=== PATIENT | female | born 1990 | race African-American/Black ===

== ENCOUNTER 2018-06-03 17:08 | Inpatient (IN) | payer SELFPAY ==
[~2018-06-03] VITALS: Ht 154.9 cm; Wt 58.5 kg
[2018-06-03] MEDS ORDERED: Isovue-300 100ml vial INJ PRN (18:15)
--- NOTE | 2018-06-03 18:23 | Emergency Room Report ---
History of Present Illness General Chief Complaint: Abdominal Pain Source: Patient Present Illness HPI 28-year-old female history of cholecystectomy p/w abdominal pain and vomiting for 5 days. Patient states pain started gradually, localized to all over abdomen, non radiating, sharp in nature, intermittent. No relieving or exacerbating factors. Severity is 5 out of 10. Pt reports n/v, multiple episodes of nbnb vomiting, denies diarrhea, and cannot room of the last time she passed gas or stool, probably in 5 days Denies fever, chills. Denies any drug use Allergies: Coded Allergies: No Known Allergies (Unverified , 06/03/18) Patient History Past Medical History: see triage record Past Surgical History: none Pertinent Family History: none Last Menstrual Period: 04/26/18 Now: No Reviewed Nursing Documentation: PMH: Agreed; PSxH: Agreed Nursing Documentation-PMH Past Medical History: No History, Except For Review of Systems All Other Systems: negative except mentioned in HPI Physical Exam Vital Signs Date Time Temp Pulse Resp B/P (MAP) Pulse Ox O2 Delivery O2 Flow Rate FiO2 06/03/18 17:26 98.7 116 18 131/69 95 Room Air 98.8 Sp02 EP Interpretation: reviewed, normal General Appearance: alert, GCS 15, non-toxic, moderate distress Head: normocephalic, atraumatic Eyes: bilateral eye normal inspection, bilateral eye PERRL, bilateral eye EOMI ENT: normal ENT inspection, normal pharynx, normal voice, moist mucus membranes Neck: normal inspection, full range of motion, supple Respiratory: normal inspection, lungs clear, normal breath sounds, no respiratory distress, no retraction, no wheezing, speaking full sentences, chest symmetrical Cardiovascular #1: normal inspection, regular rate, rhythm, no edema, normal capillary refill Cardiovascular #2: 2+ radial (R), 2+ radial (L) Gastrointestinal: other - Nondistended, generalized tenderness, normal bowel sounds, no rebound no guarding Musculoskeletal: normal inspection, back normal, normal range of motion, non- tender Neurologic: normal inspection, alert, oriented x3, responsive, motor strength/ tone normal, sensory intact, normal gait, speech normal Psychiatric: normal inspection, judgement/insight normal, memory normal Skin: normal inspection, normal color, no rash, warm/dry, well hydrated, normal turgor Medical Decision Making Diagnostic Impression: Primary Impression: Abdominal pain Additional Impressions: Elevated liver enzymes Hypokalemia Intractable nausea and vomiting ER Course 28-year-old female with abdominal pain also not passing gas or stool for 5 days Differential Diagnosis: Gastritis, gastroenteritis, appendicitis, diverticulitis, SBO, UTI/pyelo Plan: Basic labs, ua, pain control, IVF CT abdopelvis ER course: Patient has remained stable during ED stay. given potassium and fluid, still unable to tolerate PO repeat abd exam has been benign CT showing "transient" intussuception - I informed Dr Randall Disposition: Patient is to be admitted to Dr Cook Please note that this Emergency Department Report was dictated using [employer] finisher technology software, occasionally this can lead to erroneous entry secondary to interpretation by the dictation equipment Laboratory Tests Test 06/03/18 17:13 White Blood Count 12.2 K/UL (4.8-10.8) H Red Blood Count 4.97 M/UL (4.20-5.40) Hemoglobin 15.7 G/DL (12.0-16.0) Hematocrit 45.3 % (37.0-47.0) Mean Corpuscular Volume 91 FL (80-99) Mean Corpuscular Hemoglobin 31.5 PG (27.0-31.0) H Mean Corpuscular Hemoglobin Concent 34.6 G/DL (32.0-36.0) Red Cell Distribution Width 10.4 % (11.6-14.8) L Platelet Count 198 K/UL (150-450) Mean Platelet Volume 8.7 FL (6.5-10.1) Neutrophils (%) (Auto) 66.6 % (45.0-75.0) Lymphocytes (%) (Auto) 23.3 % (20.0-45.0) Monocytes (%) (Auto) 8.6 % (1.0-10.0) Eosinophils (%) (Auto) 0.7 % (0.0-3.0) Basophils (%) (Auto) 0.8 % (0.0-2.0) Urine Color Brown Urine Appearance Slightly cloudy Urine pH 6.5 (4.5-8.0) Urine Specific [place] 1.015 (1.005-1.035) Urine Protein 2+ (NEGATIVE) H Urine Glucose (UA) Negative (NEGATIVE) Urine Ketones 3+ (NEGATIVE) H Urine Occult Blood 1+ (NEGATIVE) H Urine Nitrite Negative (NEGATIVE) Urine Bilirubin 1+ (NEGATIVE) H Urine Ictotest Negative (NEGATIVE) Urine Urobilinogen 12 MG/DL (0.0-1.0) H Urine Leukocyte Esterase 2+ (NEGATIVE) H Urine RBC 2-4 /HPF (0 - 2) H Urine WBC 5-10 /HPF (0 - 2) H Urine Squamous Epithelial Cells Few /LPF (NONE/OCC) Urine Amorphous Sediment Few /LPF (NONE) H Urine Bacteria Few /HPF (NONE) Urine HCG, Qualitative Negative (NEGATIVE) Sodium Level 133 MMOL/L (136-145) L Potassium Level 2.6 MMOL/L (3.5-5.1) *L Chloride Level 95 MMOL/L (98-107) L Carbon Dioxide Level 23 MMOL/L (21-32) Anion Gap 15 mmol/L (5-15) Blood Urea Nitrogen 11 mg/dL (7-18) Creatinine 0.8 MG/DL (0.55-1.30) Estimate Glomerular Filtration Rate > 60 mL/min (>60) Glucose Level 104 MG/DL (74-106) Calcium Level 9.2 MG/DL (8.5-10.1) Total Bilirubin 1.1 MG/DL (0.2-1.0) H Direct Bilirubin 0.3 MG/DL (0.0-0.3) Aspartate Amino Transferase (AST) 240 U/L (15-37) H Alanine Aminotransferase (ALT) 533 U/L (12-78) H Alkaline Phosphatase 69 U/L (46-116) Total Protein 8.8 G/DL (6.4-8.2) H Albumin 4.0 G/DL (3.4-5.0) Globulin 4.8 g/dL Albumin/Globulin Ratio 0.8 (1.0-2.7) L Lipase 189 U/L (73-393) Human Chorionic Gonadotropin, Quant < 1 mIU/mL (1-6) L CT/MRI/US Diagnostic Results CT/MRI/US Diagnostic Results : Imaging Test Ordered: CT ABDO PELVIS Impression CT ABDOMEN & PELVIS With Contrast: Lower thorax is unremarkable. Gallbladder is surgically absent. Liver, spleen, pancreas and adrenal glands are unremarkable. Kidneys, ureters and urinary bladder are unremarkable. Uterus and adnexa are unremarkable. Appendix is unremarkable. Transient small bowel intussusception within the left lower quadrant. No bowel obstruction. No acute osseous abnormality. Last Vital Signs Date Time Temp Pulse Resp B/P (MAP) Pulse Ox O2 Delivery O2 Flow Rate FiO2 06/03/18 17:26 98.7 116 18 131/69 95 Room Air 98.8 Disposition: ADMITTED INPATIENT Condition: Serious Wili Briceno M.D. Jun 03, 2018 18:23
[2018-06-03 18:39] VITALS: BP 147/105
[2018-06-03 18:46] LABS: BASOPHILS % (AUTO) 0.8 % (0.0-2.0); EOSINOPHILS % (AUTO) 0.7 % (0.0-3.0); HEMATOCRIT 45.3 % (37.0-47.0); HEMOGLOBIN 15.7 G/DL (12.0-16.0); LYMPHOCYTES % (AUTO) 23.3 % (20.0-45.0); MEAN CORPUSCULAR VOLUME 91 FL (80-99); MONOCYTES % (AUTO) 8.6 % (1.0-10.0); NEUTROPHILS % (AUTO) 66.6 % (45.0-75.0); PLATELET COUNT 198 K/UL (150-450); RED BLOOD COUNT 4.97 M/UL (4.20-5.40); RED CELL DISTRIBUTION WIDTH 10.4 % (11.6-14.8); WHITE BLOOD COUNT 12.2 K/UL (4.8-10.8)
[2018-06-03 18:56] LABS: APPEARANCE,URINE SLIGHTLY CLOUDY; BILIRUBIN, URINE 1+ (NEGATIVE); COLOR,URINE BROWN; GLUCOSE, URINE (UA) NEGATIVE (NEGATIVE); KETONES,URINE 3+ (NEGATIVE); LEUKOCYTE ESTERASE ,URINE 2+ (NEGATIVE); NITRITE,URINE NEGATIVE (NEGATIVE); PH,URINE 6.5 (4.5-8.0); PROTEIN,URINE 2+ (NEGATIVE); UROBILINOGEN,URINE 12 MG/DL (0.0-1.0)
[2018-06-03 19:11] LABS: ALANINE AMINOTRANSFERASE 533 U/L (12-78); ALBUMIN/GLOBULIN RATIO 0.8 (1.0-2.7); ALKALINE PHOSPHATASE 69 U/L (46-116); ANION GAP 15 mmol/L (5-15); ASPARTATE AMINO TRANSFERASE 240 U/L (15-37); BILIRUBIN,TOTAL 1.1 MG/DL (0.2-1.0); BLOOD UREA NITROGEN 11 mg/dL (7-18); CALCIUM 9.2 MG/DL (8.5-10.1); CARBON DIOXIDE 23 MMOL/L (21-32); CHLORIDE 95 MMOL/L (98-107); CREATININE 0.8 MG/DL (0.55-1.30); SODIUM 133 MMOL/L (136-145)
[2018-06-03 19:16] LABS: POTASSIUM 2.6 MMOL/L (3.5-5.1)
[2018-06-03 19:17] LABS: BILIRUBIN,DIRECT 0.3 MG/DL (0.0-0.3)
[2018-06-03 20:00] VITALS: BP 133/89
[2018-06-03 22:49] VITALS: BP 142/80
[2018-06-04] VITALS: BP 133/86
[2018-06-04 04:44] VITALS: BP 142/92
[2018-06-04 06:02] LABS: BASOPHILS % (AUTO) 0.9 % (0.0-2.0); EOSINOPHILS % (AUTO) 1.6 % (0.0-3.0); HEMOGLOBIN 13.6 G/DL (12.0-16.0); LYMPHOCYTES % (AUTO) 23.9 % (20.0-45.0); MEAN CORPUSCULAR VOLUME 91 FL (80-99); MONOCYTES % (AUTO) 10.9 % (1.0-10.0); NEUTROPHILS % (AUTO) 62.7 % (45.0-75.0); PLATELET COUNT 187 K/UL (150-450); RED CELL DISTRIBUTION WIDTH 10.5 % (11.6-14.8); WHITE BLOOD COUNT 9.9 K/UL (4.8-10.8)
[2018-06-04 06:35] LABS: CREATINE KINASE 569 U/L (26-308); GAMMA GLUTAMYL TRANSPEPTIDASE 59 U/L (5-85); PHOSPHORUS 2.2 MG/DL (2.5-4.9)
[2018-06-04 06:48] LABS: ALANINE AMINOTRANSFERASE 471 U/L (12-78); ALBUMIN 3.3 G/DL (3.4-5.0); ALBUMIN/GLOBULIN RATIO 0.8 (1.0-2.7); ALKALINE PHOSPHATASE 53 U/L (46-116); ANION GAP 10 mmol/L (5-15); ASPARTATE AMINO TRANSFERASE 190 U/L (15-37); BILIRUBIN,TOTAL 0.8 MG/DL (0.2-1.0); BLOOD UREA NITROGEN 6 mg/dL (7-18); CALCIUM 7.9 MG/DL (8.5-10.1); CARBON DIOXIDE 22 MMOL/L (21-32); CHLORIDE 102 MMOL/L (98-107); CHOLESTEROL 95 MG/DL (< 200); CREATININE 0.6 MG/DL (0.55-1.30); HDL CHOLESTEROL 42 MG/DL (40-60); POTASSIUM 3.8 MMOL/L (3.5-5.1); SODIUM 134 MMOL/L (136-145); TRIGLYCERIDES 56 MG/DL (30-150)
--- NOTE | 2018-06-04 07:58 | Consultation ---
History of Present Illness General Date patient seen: Jun 04, 2018 Time patient seen: 08:00 - am Chief Complaint: Abdominal Pain Referring physician: celestine Reason for Consultation: pain management Present Illness HPI 28-year-old female history of cholecystectomy p/w abdominal pain and vomiting for 5 days. Patient states pain started gradually, localized to all over abdomen, non radiating, sharp in nature, intermittent. No relieving or exacerbating factors. Severity is 5 out of 10. Pt reports n/v, multiple episodes of vomiting, denies diarrhea. We were consulted for pain management. Allergies: Coded Allergies: No Known Allergies (Unverified , 06/03/18) Patient History Healthcare decision maker N Resuscitation status Full Code Advanced Directive on File No Past Medical/Surgical History Past Medical/Surgical History: (1) Abdominal pain (2) Hypokalemia Review of Systems Constitutional: Reports: no symptoms Eye: Reports: no symptoms ENT: Reports: no symptoms Respiratory: Reports: no symptoms Cardiovascular: Reports: no symptoms Gastrointestinal: Reports: abdominal pain, nausea, vomiting Genitourinary: Reports: no symptoms Musculoskeletal: Reports: no symptoms Skin: Reports: no symptoms Psychiatric: Reports: no symptoms Neurological: Reports: no symptoms Endocrine: Reports: no symptoms Hematologic/Lymphatic: Reports: no symptoms Physical Exam General Appearance: no apparent distress, alert HEENT: PERRL, EOMI Neck: normal alignment, supple Respiratory/Chest: lungs clear, normal breath sounds Cardiovascular/Chest: normal rate, regular rhythm Abdomen: tender Extremities: non-tender 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 II-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 grossly normal, alert, oriented x 3 Last 24 Hour Vital Signs Date Time Temp Pulse Resp B/P (MAP) Pulse Ox O2 Delivery O2 Flow Rate FiO2 06/04/18 04:44 97.7 73 18 142/92 (109) 98 97.7 06/04/18 00:00 98.2 60 16 133/86 (102) 98 98.2 06/03/18 22:49 96.4 74 16 142/80 (100) 93 96.4 06/03/18 22:19 Room Air 06/03/18 21:45 98.4 78 18 133/89 100 Room Air 98.4 06/03/18 20:00 98.4 78 18 133/89 100 Room Air 98.4 06/03/18 18:39 98.8 73 18 147/105 99 Room Air 98.8 06/03/18 17:26 98.7 116 18 131/69 95 Room Air 98.8 Intake and Output 06/03/18 06/04/18 19:00 07:00 Intake Total 1000 ml Balance 1000 ml Intake IV Total 1000 ml # Voids 1 2 Laboratory Tests Test 06/03/18 17:13 06/03/18 21:10 06/04/18 05:10 White Blood Count 12.2 K/UL (4.8-10.8) H 9.9 K/UL (4.8-10.8) Red Blood Count 4.97 M/UL (4.20-5.40) 4.30 M/UL (4.20-5.40) Hemoglobin 15.7 G/DL (12.0-16.0) 13.6 G/DL (12.0-16.0) Hematocrit 45.3 % (37.0-47.0) 39.0 % (37.0-47.0) Mean Corpuscular Volume 91 FL (80-99) 91 FL (80-99) Mean Corpuscular Hemoglobin 31.5 PG (27.0-31.0) H 31.8 PG (27.0-31.0) H Mean Corpuscular Hemoglobin Concent 34.6 G/DL (32.0-36.0) 35.0 G/DL (32.0-36.0) Red Cell Distribution Width 10.4 % (11.6-14.8) L 10.5 % (11.6-14.8) L Platelet Count 198 K/UL (150-450) 187 K/UL (150-450) Mean Platelet Volume 8.7 FL (6.5-10.1) 8.6 FL (6.5-10.1) Neutrophils (%) (Auto) 66.6 % (45.0-75.0) 62.7 % (45.0-75.0) Lymphocytes (%) (Auto) 23.3 % (20.0-45.0) 23.9 % (20.0-45.0) Monocytes (%) (Auto) 8.6 % (1.0-10.0) 10.9 % (1.0-10.0) H Eosinophils (%) (Auto) 0.7 % (0.0-3.0) 1.6 % (0.0-3.0) Basophils (%) (Auto) 0.8 % (0.0-2.0) 0.9 % (0.0-2.0) Urine Color Brown Urine Appearance Slightly cloudy Urine pH 6.5 (4.5-8.0) Urine Specific [place] 1.015 (1.005-1.035) Urine Protein 2+ (NEGATIVE) H Urine Glucose (UA) Negative (NEGATIVE) Urine Ketones 3+ (NEGATIVE) H Urine Occult Blood 1+ (NEGATIVE) H Urine Nitrite Negative (NEGATIVE) Urine Bilirubin 1+ (NEGATIVE) H Urine Ictotest Negative (NEGATIVE) Urine Urobilinogen 12 MG/DL (0.0-1.0) H Urine Leukocyte Esterase 2+ (NEGATIVE) H Urine RBC 2-4 /HPF (0 - 2) H Urine WBC 5-10 /HPF (0 - 2) H Urine Squamous Epithelial Cells Few /LPF (NONE/OCC) Urine Amorphous Sediment Few /LPF (NONE) H Urine Bacteria Few /HPF (NONE) Urine HCG, Qualitative Negative (NEGATIVE) Sodium Level 133 MMOL/L (136-145) L 134 MMOL/L (136-145) L Potassium Level 2.6 MMOL/L (3.5-5.1) *L 3.8 MMOL/L (3.5-5.1) Chloride Level 95 MMOL/L (98-107) L 102 MMOL/L (98-107) Carbon Dioxide Level 23 MMOL/L (21-32) 22 MMOL/L (21-32) Anion Gap 15 mmol/L (5-15) 10 mmol/L (5-15) Blood Urea Nitrogen 11 mg/dL (7-18) 6 mg/dL (7-18) L Creatinine 0.8 MG/DL (0.55-1.30) 0.6 MG/DL (0.55-1.30) Estimat Glomerular Filtration Rate > 60 mL/min (>60) > 60 mL/min (>60) Glucose Level 104 MG/DL (74-106) 106 MG/DL (74-106) Calcium Level 9.2 MG/DL (8.5-10.1) 7.9 MG/DL (8.5-10.1) L Total Bilirubin 1.1 MG/DL (0.2-1.0) H 0.8 MG/DL (0.2-1.0) Direct Bilirubin 0.3 MG/DL (0.0-0.3) Aspartate Amino Transf (AST/SGOT) 240 U/L (15-37) H 190 U/L (15-37) H Alanine Aminotransferase (ALT/SGPT) 533 U/L (12-78) H 471 U/L (12-78) H Alkaline Phosphatase 69 U/L (46-116) 53 U/L (46-116) C-Reactive Protein, Quantitative < 0.4 mg/dL (0.00-0.90) Total Protein 8.8 G/DL (6.4-8.2) H 7.2 G/DL (6.4-8.2) Albumin 4.0 G/DL (3.4-5.0) 3.3 G/DL (3.4-5.0) L Globulin 4.8 g/dL 3.9 g/dL Albumin/Globulin Ratio 0.8 (1.0-2.7) L 0.8 (1.0-2.7) L Lipase 189 U/L (73-393) Human Chorionic Gonadotropin, Quant < 1 mIU/mL (1-6) L Hepatitis A IgM Antibody Pending Hepatitis B Surface Antigen Pending Hepatitis B Core IgM Antibody Pending Hepatitis C Antibody Pending Uric Acid 3.1 MG/DL (2.6-7.2) Phosphorus Level 2.2 MG/DL (2.5-4.9) L Magnesium Level 1.9 MG/DL (1.8-2.4) Gamma Glutamyl Transpeptidase 59 U/L (5-85) Total Creatine Kinase 569 U/L (26-308) H Triglycerides Level 56 MG/DL (30-150) Cholesterol Level 95 MG/DL (< 200) LDL Cholesterol 45 mg/dL (<100) HDL Cholesterol 42 MG/DL (40-60) Cholesterol/HDL Ratio 2.3 (3.3-4.4) L Thyroid Stimulating Hormone (TSH) 0.728 uiU/mL (0.358-3.740) Height (Feet): 5 Height (Inches): 1.00 Weight (Pounds): 129 Medications Current Medications Medications (Trade) Dose Ordered Sig/Thien Route PRN Reason Start Time Stop Time Status Last Admin Dose Admin Dextrose/ Electrolytes 1,000 ml @ 75 mls/hr [id number] IV 06/03/18 22:30 07/03/18 22:29 06/04/18 02:20 Famotidine (Pepcid I.v.) 20 mg Q12HR IVP 06/04/18 09:00 07/04/18 08:59 Ondansetron HCl (Zofran) 4 mg Q6H PRN IVP Nausea & Vomiting 06/03/18 23:15 07/03/18 23:14 Assessment/Plan Problem List: (1) Abdominal pain ICD Codes: R10.9 - Unspecified abdominal pain SNOMED: 96928423 (2) Intussusception of small bowel ICD Codes: K56.1 - Intussusception SNOMED: 697360877 Assessment/Plan Patient will be started on Tramadol 25mg PO 1 tab Q4H PRN severe pain. D/w Dr. Coronel and he concurred. Than you for consultation. Rocael Gerber Jun 04, 2018 07:58
[2018-06-04 08:00] VITALS: BP 136/93
[2018-06-04] MEDS ORDERED: traMADol 50mg tab ORAL PRN (08:15)
[2018-06-04] MEDS ORDERED: Gastrograffin 30ml ORAL PRN (10:00)
[2018-06-04] MEDS ORDERED: Sodium Phosphate 30 MM in NS 275 ML IVPB ONE (10:30)
[2018-06-04] MEDS: Albuterol/Ipratropium 3ml neb HHN PRN ×2 (10:38→21:34)
--- NOTE | 2018-06-04 11:36 | Diagnostic Imaging Report ---
Clinical Indication: Abdominal pain, nausea, vomiting for 5 days Technique: Patient given oral contrast. IV administration nonionic contrast. Venous phase spiral acquisition obtained through the abdomen and pelvis. Multiplanar reconstructions were generated. Total dose length product 563.08 mGycm. CTDIvol(s) 11.66 mGy. Dose reduction achieved using automated exposure control Comparison: none Findings: There is a small focal intussusception seen in the left lower quadrant, probably involving proximal ileum, extending about 2 cm in length. The intussuscipiens is actually somewhat greater in caliber than the intussusceptum. No definite mass is demonstrated. Contrast is seen throughout most of the small bowel, including beyond the point of intussusception. There is no small bowel wall thickening. The appendix is normal. No evidence of diverticulosis or diverticulitis. No free or loculated intraperitoneal air or fluid is evident. The distal esophagus, stomach, duodenum are unremarkable. The gallbladder is surgically absent. The liver, bile ducts, pancreas, spleen, adrenals, kidneys are unremarkable. No retroperitoneal or mesenteric mass or adenopathy. No pelvic mass or adenopathy. Uterus and ovaries appear unremarkable. Included lung bases are clear. 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 Impression: Small focal intussusception left lower quadrant, probably involving proximal ileum, does not appear to obstructive, likely transient No acute process otherwise Surgically absent gallbladder This agrees with the preliminary interpretation provided overnight by [facility] teleradiology service. The CT scanner at [facility] is accredited by the [employer] and the scans are performed using protocols designed to limit radiation exposure to as low as reasonably achievable to attain images of sufficient resolution adequate for diagnostic evaluation.
[2018-06-04 12:00] VITALS: BP 148/105
[2018-06-04] MEDS: traMADol 50mg tab ORAL PRN ×2 (12:11→21:16)
--- NOTE | 2018-06-04 12:26 | GI Initial Consult Note ---
History of Present Illness General Date patient seen: Jun 04, 2018 Time patient seen: 14:15 Reason for Hospitalization: Abdominal Pain Referring physician: DORA MCKINNON Reason for Consultation: ABDOMINAL PAIN Present Illness HPI 28-year-old female history of cholecystectomy p/w abdominal pain and vomiting for 5 days. Patient states pain started gradually, localized to all over abdomen, non radiating, sharp in nature, intermittent. No relieving or exacerbating factors. Severity is 5 out of 10. Pt reports n/v, multiple episodes of nbnb vomiting, denies diarrhea, and cannot room of the last time she passed gas or stool, probably in 5 days Denies fever, chills. Denies any drug use GI consulted for abdominal pain. Pt seen, awake A&Ox4 NAD with no active s/sx of N/V/D. Abdomen is soft, non distended. Per patient no BM in 5 days. Has been passing gas. States she is unable to tolerate PO, and has vomited multiple times. CT AP shows patient has intussusception of the small bowel. No history of endoscopy / colonoscopy. Med list reviewed/reconciled: Yes Allergies: Coded Allergies: No Known Allergies (Unverified , 06/03/18) Patient History History Provided By: Patient, Medical Record PMH Narrative Past Medical History: see triage record Past Surgical History: none Pertinent Family History: none Last Menstrual Period: 04/26/18 Now: No Reviewed Nursing Documentation: PMH: Agreed; PSxH: Agreed Nursing Documentation-PM Past Medical History: No History, Except For Social History: Denies: smoking, alcohol use, drug use, other Review of Systems All Other Systems: negative except mentioned in HPI Physical Exam Vital Signs Date Time Temp Pulse Resp B/P (MAP) Pulse Ox O2 Delivery O2 Flow Rate FiO2 06/03/18 17:26 98.7 116 18 131/69 95 Room Air 98.8 06/04/18 10:39 21 Sp02 EP Interpretation: reviewed, normal Labs Laboratory Tests Test 06/03/18 17:13 06/03/18 21:10 06/04/18 05:10 White Blood Count 12.2 K/UL (4.8-10.8) H 9.9 K/UL (4.8-10.8) Red Blood Count 4.97 M/UL (4.20-5.40) 4.30 M/UL (4.20-5.40) Hemoglobin 15.7 G/DL (12.0-16.0) 13.6 G/DL (12.0-16.0) Hematocrit 45.3 % (37.0-47.0) 39.0 % (37.0-47.0) Mean Corpuscular Volume 91 FL (80-99) 91 FL (80-99) Mean Corpuscular Hemoglobin 31.5 PG (27.0-31.0) H 31.8 PG (27.0-31.0) H Mean Corpuscular Hemoglobin Concent 34.6 G/DL (32.0-36.0) 35.0 G/DL (32.0-36.0) Red Cell Distribution Width 10.4 % (11.6-14.8) L 10.5 % (11.6-14.8) L Platelet Count 198 K/UL (150-450) 187 K/UL (150-450) Mean Platelet Volume 8.7 FL (6.5-10.1) 8.6 FL (6.5-10.1) Neutrophils (%) (Auto) 66.6 % (45.0-75.0) 62.7 % (45.0-75.0) Lymphocytes (%) (Auto) 23.3 % (20.0-45.0) 23.9 % (20.0-45.0) Monocytes (%) (Auto) 8.6 % (1.0-10.0) 10.9 % (1.0-10.0) H Eosinophils (%) (Auto) 0.7 % (0.0-3.0) 1.6 % (0.0-3.0) Basophils (%) (Auto) 0.8 % (0.0-2.0) 0.9 % (0.0-2.0) Urine Color Brown Urine Appearance Slightly cloudy Urine pH 6.5 (4.5-8.0) Urine Specific [place] 1.015 (1.005-1.035) Urine Protein 2+ (NEGATIVE) H Urine Glucose (UA) Negative (NEGATIVE) Urine Ketones 3+ (NEGATIVE) H Urine Occult Blood 1+ (NEGATIVE) H Urine Nitrite Negative (NEGATIVE) Urine Bilirubin 1+ (NEGATIVE) H Urine Ictotest Negative (NEGATIVE) Urine Urobilinogen 12 MG/DL (0.0-1.0) H Urine Leukocyte Esterase 2+ (NEGATIVE) H Urine RBC 2-4 /HPF (0 - 2) H Urine WBC 5-10 /HPF (0 - 2) H Urine Squamous Epithelial Cells Few /LPF (NONE/OCC) Urine Amorphous Sediment Few /LPF (NONE) H Urine Bacteria Few /HPF (NONE) Urine HCG, Qualitative Negative (NEGATIVE) Sodium Level 133 MMOL/L (136-145) L 134 MMOL/L (136-145) L Potassium Level 2.6 MMOL/L (3.5-5.1) *L 3.8 MMOL/L (3.5-5.1) Chloride Level 95 MMOL/L (98-107) L 102 MMOL/L (98-107) Carbon Dioxide Level 23 MMOL/L (21-32) 22 MMOL/L (21-32) Anion Gap 15 mmol/L (5-15) 10 mmol/L (5-15) Blood Urea Nitrogen 11 mg/dL (7-18) 6 mg/dL (7-18) L Creatinine 0.8 MG/DL (0.55-1.30) 0.6 MG/DL (0.55-1.30) Estimat Glomerular Filtration Rate > 60 mL/min (>60) > 60 mL/min (>60) Glucose Level 104 MG/DL (74-106) 106 MG/DL (74-106) Calcium Level 9.2 MG/DL (8.5-10.1) 7.9 MG/DL (8.5-10.1) L Total Bilirubin 1.1 MG/DL (0.2-1.0) H 0.8 MG/DL (0.2-1.0) Direct Bilirubin 0.3 MG/DL (0.0-0.3) Aspartate Amino Transf (AST/SGOT) 240 U/L (15-37) H 190 U/L (15-37) H Alanine Aminotransferase (ALT/SGPT) 533 U/L (12-78) H 471 U/L (12-78) H Alkaline Phosphatase 69 U/L (46-116) 53 U/L (46-116) C-Reactive Protein, Quantitative < 0.4 mg/dL (0.00-0.90) Total Protein 8.8 G/DL (6.4-8.2) H 7.2 G/DL (6.4-8.2) Albumin 4.0 G/DL (3.4-5.0) 3.3 G/DL (3.4-5.0) L Globulin 4.8 g/dL 3.9 g/dL Albumin/Globulin Ratio 0.8 (1.0-2.7) L 0.8 (1.0-2.7) L Lipase 189 U/L (73-393) Human Chorionic Gonadotropin, Quant < 1 mIU/mL (1-6) L Hepatitis A IgM Antibody Pending Hepatitis B Surface Antigen Pending Hepatitis B Core IgM Antibody Pending Hepatitis C Antibody Pending Uric Acid 3.1 MG/DL (2.6-7.2) Phosphorus Level 2.2 MG/DL (2.5-4.9) L Magnesium Level 1.9 MG/DL (1.8-2.4) Gamma Glutamyl Transpeptidase 59 U/L (5-85) Total Creatine Kinase 569 U/L (26-308) H Triglycerides Level 56 MG/DL (30-150) Cholesterol Level 95 MG/DL (< 200) LDL Cholesterol 45 mg/dL (<100) HDL Cholesterol 42 MG/DL (40-60) Cholesterol/HDL Ratio 2.3 (3.3-4.4) L Thyroid Stimulating Hormone (TSH) 0.728 uiU/mL (0.358-3.740) General Appearance: well appearing, no apparent distress, alert, thin Head: normocephalic EENT: PERRL/EOMI, normal ENT inspection Neck: supple Respiratory: normal breath sounds, no respiratory distress Cardiovascular: normal rate Gastrointestinal: normal inspection, non tender, soft, normal bowel sounds, non -distended Rectal: deferred Genitourinary: no CVA tenderness Musculoskeletal: normal inspection, back normal Neurologic: normal inspection, alert, oriented x3, responsive Psychiatric: normal inspection, judgement/insight normal, memory normal Skin: normal inspection, normal color, no rash, warm/dry, palpation normal, well hydrated Lymphatic: normal inspection, no adenopathy Current Medications Current Medications Medications (Trade) Dose Ordered Sig/Thien Route PRN Reason Start Time Stop Time Status Last Admin Dose Admin Albuterol/ Ipratropium (Albuterol/ Ipratropium) 3 ml Q4H PRN HHN Shortness of Breath 06/04/18 08:15 06/09/18 08:14 06/04/18 10:38 Dextrose/ Electrolytes 1,000 ml @ 75 mls/hr [id number] IV 06/03/18 22:30 07/03/18 22:29 06/04/18 12:02 Diatrizoate Meglum/ Diatrizoate Sod (Gastrografin) 1 ml NOW PRN ORAL Radiology Procedure 06/04/18 10:00 06/07/18 09:53 Diphenhydramine HCl (Benadryl) 25 mg Q6H PRN ORAL Itching/sleep 06/04/18 08:30 07/04/18 08:14 Famotidine (Pepcid I.v.) 20 mg Q12HR IVP 06/04/18 09:00 07/04/18 08:59 06/04/18 08:45 Ondansetron HCl (Zofran) 4 mg Q6H PRN IVP Nausea & Vomiting 06/03/18 23:15 07/03/18 23:14 Sodium Phosphate 30 mm/Sodium Chloride 285 ml @ 47.5 mls/hr ONCE ONCE IVPB 06/04/18 10:30 06/04/18 16:29 06/04/18 11:21 Tramadol HCl (Ultram) 25 mg Q4HR PRN ORAL Moderate Pain (Pain Scale 4-6) 06/04/18 12:15 06/11/18 08:14 06/04/18 12:11 GI: Plan Problems: (1) Intussusception of small bowel (2) Abdominal pain (3) Intractable nausea and vomiting Plan fu surgical recs fu UGI Series, SBFT r/o obstruction diet per surgery pain mgmt zofran prn fu labs Discussed with Dr. Jaime. Thank you for this patient referral, we will follow. The patient was seen and examined at bedside and all new and available data was reviewed in the patients chart. I agree with the above findings, impression and plan. (Patient seen earlier today. Signature stamp does not reflect patient encounter time.). - MD Donna Rondon,Mar-Edilberto GAME ATTENDANT Jun 04, 2018 12:26
--- NOTE | 2018-06-04 12:30 | Consultation ---
History of Present Illness General Date patient seen: Jun 04, 2018 Chief Complaint: Abdominal Pain Present Illness HPI 28F otherwise well with history of lap junior in past presented to ED with complaints of abdominal pain x 5 days. states 1-2 weeks ago began a new birthcontrol nuvaring. since has not been feeling well and 5 days ago began to have lower abdominal discomfort with associated nausea and emesis. pain cramping intermittent discomfort. no radiation. not improved so came to ED for evaluate. no flatus in 2 days. no BM in 1 week. surgery called to evaluate for abdominal pain. currently no n/v/f/c. states pain improved with narcotics. CT reviewed. labs reviewed. Allergies: Coded Allergies: No Known Allergies (Unverified , 06/03/18) Patient History History Provided By: Patient, Medical Record, PMD Healthcare decision maker N Resuscitation status Full Code Advanced Directive on File No Past Medical/Surgical History Past Medical/Surgical History: (1) Elevated liver enzymes (2) Intractable nausea and vomiting (3) Hypokalemia (4) Abdominal pain Review of Systems All Other Systems: negative except mentioned in HPI Physical Exam General Appearance: no apparent distress, alert Lines, tubes and drains: peripheral HEENT: normocephalic, atraumatic, mucous membranes moist, PERRL Neck: normal inspection Respiratory/Chest: normal breath sounds, no respiratory distress, no accessory muscle use Cardiovascular/Chest: normal peripheral pulses, normal rate, regular rhythm Abdomen: normal bowel sounds, non tender, soft, no organomegaly, no mass Extremities: non-tender, normal inspection Skin Exam: normal pigmentation Neurologic: alert, oriented x 3 Last 24 Hour Vital Signs Date Time Temp Pulse Resp B/P (MAP) Pulse Ox O2 Delivery O2 Flow Rate FiO2 06/04/18 10:47 68 18 100 Room Air 21 06/04/18 10:39 66 18 99 Room Air 21 06/04/18 09:00 Room Air 06/04/18 08:00 97.3 63 19 136/93 (107) 99 97.3 06/04/18 04:44 97.7 73 18 142/92 (109) 98 97.7 06/04/18 00:00 98.2 60 16 133/86 (102) 98 98.2 06/03/18 22:49 96.4 74 16 142/80 (100) 93 96.4 06/03/18 22:19 Room Air 06/03/18 21:45 98.4 78 18 133/89 100 Room Air 98.4 06/03/18 20:00 98.4 78 18 133/89 100 Room Air 98.4 06/03/18 18:39 98.8 73 18 147/105 99 Room Air 98.8 06/03/18 17:26 98.7 116 18 131/69 95 Room Air 98.8 Intake and Output 06/03/18 06/04/18 19:00 07:00 Intake Total 1000 ml Balance 1000 ml Intake IV Total 1000 ml # Voids 1 2 Laboratory Tests Test 06/03/18 17:13 06/03/18 21:10 06/04/18 05:10 White Blood Count 12.2 K/UL (4.8-10.8) H 9.9 K/UL (4.8-10.8) Red Blood Count 4.97 M/UL (4.20-5.40) 4.30 M/UL (4.20-5.40) Hemoglobin 15.7 G/DL (12.0-16.0) 13.6 G/DL (12.0-16.0) Hematocrit 45.3 % (37.0-47.0) 39.0 % (37.0-47.0) Mean Corpuscular Volume 91 FL (80-99) 91 FL (80-99) Mean Corpuscular Hemoglobin 31.5 PG (27.0-31.0) H 31.8 PG (27.0-31.0) H Mean Corpuscular Hemoglobin Concent 34.6 G/DL (32.0-36.0) 35.0 G/DL (32.0-36.0) Red Cell Distribution Width 10.4 % (11.6-14.8) L 10.5 % (11.6-14.8) L Platelet Count 198 K/UL (150-450) 187 K/UL (150-450) Mean Platelet Volume 8.7 FL (6.5-10.1) 8.6 FL (6.5-10.1) Neutrophils (%) (Auto) 66.6 % (45.0-75.0) 62.7 % (45.0-75.0) Lymphocytes (%) (Auto) 23.3 % (20.0-45.0) 23.9 % (20.0-45.0) Monocytes (%) (Auto) 8.6 % (1.0-10.0) 10.9 % (1.0-10.0) H Eosinophils (%) (Auto) 0.7 % (0.0-3.0) 1.6 % (0.0-3.0) Basophils (%) (Auto) 0.8 % (0.0-2.0) 0.9 % (0.0-2.0) Urine Color Brown Urine Appearance Slightly cloudy Urine pH 6.5 (4.5-8.0) Urine Specific [place] 1.015 (1.005-1.035) Urine Protein 2+ (NEGATIVE) H Urine Glucose (UA) Negative (NEGATIVE) Urine Ketones 3+ (NEGATIVE) H Urine Occult Blood 1+ (NEGATIVE) H Urine Nitrite Negative (NEGATIVE) Urine Bilirubin 1+ (NEGATIVE) H Urine Ictotest Negative (NEGATIVE) Urine Urobilinogen 12 MG/DL (0.0-1.0) H Urine Leukocyte Esterase 2+ (NEGATIVE) H Urine RBC 2-4 /HPF (0 - 2) H Urine WBC 5-10 /HPF (0 - 2) H Urine Squamous Epithelial Cells Few /LPF (NONE/OCC) Urine Amorphous Sediment Few /LPF (NONE) H Urine Bacteria Few /HPF (NONE) Urine HCG, Qualitative Negative (NEGATIVE) Sodium Level 133 MMOL/L (136-145) L 134 MMOL/L (136-145) L Potassium Level 2.6 MMOL/L (3.5-5.1) *L 3.8 MMOL/L (3.5-5.1) Chloride Level 95 MMOL/L (98-107) L 102 MMOL/L (98-107) Carbon Dioxide Level 23 MMOL/L (21-32) 22 MMOL/L (21-32) Anion Gap 15 mmol/L (5-15) 10 mmol/L (5-15) Blood Urea Nitrogen 11 mg/dL (7-18) 6 mg/dL (7-18) L Creatinine 0.8 MG/DL (0.55-1.30) 0.6 MG/DL (0.55-1.30) Estimat Glomerular Filtration Rate > 60 mL/min (>60) > 60 mL/min (>60) Glucose Level 104 MG/DL (74-106) 106 MG/DL (74-106) Calcium Level 9.2 MG/DL (8.5-10.1) 7.9 MG/DL (8.5-10.1) L Total Bilirubin 1.1 MG/DL (0.2-1.0) H 0.8 MG/DL (0.2-1.0) Direct Bilirubin 0.3 MG/DL (0.0-0.3) Aspartate Amino Transf (AST/SGOT) 240 U/L (15-37) H 190 U/L (15-37) H Alanine Aminotransferase (ALT/SGPT) 533 U/L (12-78) H 471 U/L (12-78) H Alkaline Phosphatase 69 U/L (46-116) 53 U/L (46-116) C-Reactive Protein, Quantitative < 0.4 mg/dL (0.00-0.90) Total Protein 8.8 G/DL (6.4-8.2) H 7.2 G/DL (6.4-8.2) Albumin 4.0 G/DL (3.4-5.0) 3.3 G/DL (3.4-5.0) L Globulin 4.8 g/dL 3.9 g/dL Albumin/Globulin Ratio 0.8 (1.0-2.7) L 0.8 (1.0-2.7) L Lipase 189 U/L (73-393) Human Chorionic Gonadotropin, Quant < 1 mIU/mL (1-6) L Hepatitis A IgM Antibody Pending Hepatitis B Surface Antigen Pending Hepatitis B Core IgM Antibody Pending Hepatitis C Antibody Pending Uric Acid 3.1 MG/DL (2.6-7.2) Phosphorus Level 2.2 MG/DL (2.5-4.9) L Magnesium Level 1.9 MG/DL (1.8-2.4) Gamma Glutamyl Transpeptidase 59 U/L (5-85) Total Creatine Kinase 569 U/L (26-308) H Triglycerides Level 56 MG/DL (30-150) Cholesterol Level 95 MG/DL (< 200) LDL Cholesterol 45 mg/dL (<100) HDL Cholesterol 42 MG/DL (40-60) Cholesterol/HDL Ratio 2.3 (3.3-4.4) L Thyroid Stimulating Hormone (TSH) 0.728 uiU/mL (0.358-3.740) Height (Feet): 5 Height (Inches): 1.00 Weight (Pounds): 129 Medications Current Medications Medications (Trade) Dose Ordered Sig/Thien Route PRN Reason Start Time Stop Time Status Last Admin Dose Admin Albuterol/ Ipratropium (Albuterol/ Ipratropium) 3 ml Q4H PRN HHN Shortness of Breath 06/04/18 08:15 06/09/18 08:14 06/04/18 10:38 Dextrose/ Electrolytes 1,000 ml @ 75 mls/hr [id number] IV 06/03/18 22:30 07/03/18 22:29 06/04/18 12:02 Diatrizoate Meglum/ Diatrizoate Sod (Gastrografin) 1 ml NOW PRN ORAL Radiology Procedure 06/04/18 10:00 06/07/18 09:53 Diphenhydramine HCl (Benadryl) 25 mg Q6H PRN ORAL Itching/sleep 06/04/18 08:30 07/04/18 08:14 Famotidine (Pepcid I.v.) 20 mg Q12HR IVP 06/04/18 09:00 07/04/18 08:59 06/04/18 08:45 Ondansetron HCl (Zofran) 4 mg Q6H PRN IVP Nausea & Vomiting 06/03/18 23:15 07/03/18 23:14 Sodium Phosphate 30 mm/Sodium Chloride 285 ml @ 47.5 mls/hr ONCE ONCE IVPB 06/04/18 10:30 06/04/18 16:29 06/04/18 11:21 Tramadol HCl (Ultram) 25 mg Q4HR PRN ORAL Moderate Pain (Pain Scale 4-6) 06/04/18 12:15 06/11/18 08:14 06/04/18 12:11 Assessment/Plan Problem List: (1) Abdominal pain Assessment & Plan: possible related to intussusception or can be incidental findings. symptoms improved exam benign labs okay. will order small bowel series to ensure no obstruction will follow clinically thank you ICD Codes: R10.9 - Unspecified abdominal pain SNOMED: 32097677 Status: stable Vince Randall Jun 04, 2018 12:30
[2018-06-04 20:19] VITALS: BP 160/86
[2018-06-04 22:18] VITALS: BP 146/97
--- NOTE | 2018-06-04 23:45 | History and Physical Report ---
DATE OF ADMISSION: 06/03/2018 HISTORY OF PRESENT ILLNESS: The patient comes here and admitted for abdominal pain and hypokalemia. The patient basically being admitted for abdominal pain and hypokalemia. Also, CT of the abdomen shows transient intussusception. The patient been also having intractable nausea and vomiting for couple days and very low potassium, most likely due to nausea and vomiting. The patient also has a borderline leukocytosis and LFT elevation as well. The patient is admitted for those reasons. PAST MEDICAL HISTORY: None. ALLERGIES: No known allergies. MEDICATIONS: None. PAST SURGICAL HISTORY: None known. FAMILY HISTORY: Noncontributory. SOCIAL HISTORY: Denies alcohol or illicit drugs. REVIEW OF SYSTEMS: HEENT: Denies headaches. PULMONARY: Denies shortness of breath. Denies cough. CARDIOVASCULAR: Denies chest pain. No orthopnea. GASTROINTESTINAL: Reports nausea and vomiting intractable for couple of days and some abdominal pain. EXTREMITY: Denies lower extremity pain. CENTRAL NERVOUS SYSTEM: Denies change in vision or speech pattern. PHYSICAL EXAMINATION: VITAL SIGNS: Temperature is 97.7 degrees, pulse 73, and blood pressure 142/93. HEENT: PERRLA. NECK: Supple. No lymphadenopathy. CHEST: Clear to auscultation. GASTROINTESTINAL: Soft. Mildly distended, mild abdominal pain, although the abdomen is soft. No organomegaly. EXTREMITIES: No edema. NEUROLOGIC: Reflexes on some both sides. Moves all four extremities. LABORATORY AND DIAGNOSTIC DATA: CT scan shows transient intussusception. Labs, WBC of 12.2, hemoglobin 15.7 and platelet 198. Sodium 133, potassium 2.6, chloride 95, BUN of 11, creatinine 0.8 and glucose of 104. AST of 240 and ALT of 533. Total bilirubin 1.1. ASSESSMENT AND PLAN: 1. Transient intussusception. 2. Intractable vomiting related to intussusception. 3. Hypokalemia secondary to nausea and vomiting. 4. Elevated LFTs. I have asked Dr. Randall, Dr. Solo, Dr. Jaime, Dr. Harris, and Dr. Coronel to see the patient for the above-mentioned diagnoses and treatment and for pain management. Reinier Harris M.D. DR: JEREMY JOB#: [id number] CC:
[2018-06-05 00:37] VITALS: BP 136/63
[2018-06-05] MEDS: traMADol 50mg tab ORAL PRN ×4 (02:11→20:53)
[2018-06-05 04:16] VITALS: BP 104/74
[2018-06-05 07:22] LABS: HEMATOCRIT 37.3 % (37.0-47.0); MEAN CORPUSCULAR VOLUME 90 FL (80-99); PLATELET COUNT 164 K/UL (150-450); RED BLOOD COUNT 4.13 M/UL (4.20-5.40); RED CELL DISTRIBUTION WIDTH 10.4 % (11.6-14.8); WHITE BLOOD COUNT 7.8 K/UL (4.8-10.8)
[2018-06-05 07:27] VITALS: BP 105/62
[2018-06-05 07:40] LABS: ANION GAP 11 mmol/L (5-15); BLOOD UREA NITROGEN 4 mg/dL (7-18); CARBON DIOXIDE 25 MMOL/L (21-32); CHLORIDE 101 MMOL/L (98-107); CREATININE 0.5 MG/DL (0.55-1.30); POTASSIUM 3.2 MMOL/L (3.5-5.1); SODIUM 136 MMOL/L (136-145)
[2018-06-05 11:48] VITALS: BP 134/98
--- NOTE | 2018-06-05 12:39 | General Progress Note ---
Assessment/Plan Problem List: (1) Elevated liver enzymes ICD Codes: R74.8 - Abnormal levels of other serum enzymes SNOMED: 239231654 (2) Intractable nausea and vomiting ICD Codes: R11.2 - Nausea with vomiting, unspecified SNOMED: 802451075 (3) Hypokalemia ICD Codes: E87.6 - Hypokalemia SNOMED: 09410164 (4) Abdominal pain ICD Codes: R10.9 - Unspecified abdominal pain SNOMED: 27585006 (5) Intussusception of small bowel ICD Codes: K56.1 - Intussusception SNOMED: 275367410 Status: progressing Assessment/Plan N/V DECREASEd intusseption treatment per recommenation of dr dumas check lft Subjective ROS Limited/Unobtainable: Yes Allergies: Coded Allergies: No Known Allergies (Unverified , 06/03/18) Objective Last 24 Hour Vital Signs Date Time Temp Pulse Resp B/P (MAP) Pulse Ox O2 Delivery O2 Flow Rate FiO2 06/05/18 11:48 98.2 61 18 134/98 (110) 99 98.2 06/05/18 09:00 Room Air 06/05/18 07:27 98.1 67 20 105/62 (76) 100 98.1 06/05/18 07:15 68 16 Room Air 21 06/05/18 05:08 98.1 06/05/18 04:16 98.1 73 18 104/74 (84) 100 98.1 06/05/18 04:09 98.1 06/05/18 03:10 98.1 06/05/18 02:11 98.1 06/05/18 00:37 98.1 91 19 136/63 (87) 100 98.1 06/04/18 22:18 76 146/97 (113) 06/04/18 21:55 Room Air 06/04/18 21:45 70 18 9 Room Air 21 06/04/18 21:33 68 18 98 Room Air 21 06/04/18 21:16 98.1 06/04/18 20:19 98.1 82 17 160/86 (110) 99 98.1 06/04/18 19:59 70 18 Room Air 21 Intake and Output 06/04/18 06/05/18 19:00 07:00 Intake Total 300 ml 450 ml Balance 300 ml 450 ml Intake IV Total 300 ml 450 ml # Voids 3 2 Laboratory Tests 06/05/18 06:10: White Blood Count 7.8, Red Blood Count 4.13L, Hemoglobin 13.0, Hematocrit 37.3, Mean Corpuscular Volume 90, Mean Corpuscular Hemoglobin 31.5H, Mean Corpuscular Hemoglobin Concent 34.9, Red Cell Distribution Width 10.4L, Platelet Count 164, Mean Platelet Volume 8.1, Neutrophils (%) (Auto) , Lymphocytes (%) (Auto) , Monocytes (%) (Auto) , Eosinophils (%) (Auto) , Basophils (%) (Auto) , Differential Total Cells Counted 100, Neutrophils % (Manual) 63, Lymphocytes % ( Manual) 28, Monocytes % (Manual) 6, Eosinophils % (Manual) 3, Basophils % ( Manual) 0, Band Neutrophils 0, Platelet Estimate Adequate, Platelet Morphology Normal, Red Blood Cell Morphology Normal, Sodium Level 136, Potassium Level 3.2L , Chloride Level 101, Carbon Dioxide Level 25, Anion Gap 11, Blood Urea Nitrogen 4L, Creatinine 0.5L, Estimat Glomerular Filtration Rate > 60, Glucose Level 99, Calcium Level 8.0L Height (Feet): 5 Height (Inches): 1.00 Weight (Pounds): 129 Respiratory/Chest: lungs clear Abdomen: soft Reinier Harris MD Jun 05, 2018 12:39
--- NOTE | 2018-06-05 13:08 | Diagnostic Imaging Report ---
Indication: Pain. Finding of small bowel small bowel intussusception in the left lower quadrant on CT 06/02/2018. Technique: Small bowel follow-through was obtained. Automatic Pinsetter Adjuster radiograph was obtained. Oral contrast wasn't administered and whole radiographic images were obtained up to 7 hours post administration of contrast. Comparison: CT of the abdomen and pelvis 06/03/2018 Findings: Automatic Pinsetter Adjuster radiograph demonstrates some retained contrast in the colon from oral contrast administration on 06/02/2018. No abnormal distention of small bowel loops is noted. Surgical clips are noted in the right upper quadrant from prior cholecystectomy. No acute osseous abnormality is noted. Subsequently oral contrast was administered and radiographic images were obtained. Immediate post administration images demonstrate normal caliber stomach and proximal small bowel with normal C-loop of the duodenum and normal positioning of the ligament of Treitz to the left of midline; there is no evidence to suggest intestinal malrotation. Subsequent images demonstrate expected passage of contrast through small bowel loops. No abnormal distention of small bowel loops is noted. Specifically there is no evidence of obstruction through the region of previously described intussusception the left lower quadrant. Final image demonstrates passage of majority of contrast into the right colon. IMPRESSION: Small bowel follow-through as above without evidence to suggest small bowel obstruction.
--- NOTE | 2018-06-05 13:19 | GI Progress Note ---
Assessment/Plan Problems: (1) Intussusception of small bowel ICD Codes: K56.1 - Intussusception SNOMED: 658530477 (2) Abdominal pain ICD Codes: R10.9 - Unspecified abdominal pain SNOMED: 66118582 (3) Intractable nausea and vomiting ICD Codes: R11.2 - Nausea with vomiting, unspecified SNOMED: 845100587 (4) Elevated liver enzymes ICD Codes: R74.8 - Abnormal levels of other serum enzymes SNOMED: 216767391 Status: stable Status Narrative Discussed with Dr. Jaime. Assessment/Plan Small bowel follow-through as above without evidence to suggest small bowel obstruction. transaminitis symptomatic treatment CLD pain mgmt zofran prn trend LFTs fu labs The patient was seen and examined at bedside and all new and available data was reviewed in the patients chart. I agree with the above findings, impression and plan. (Patient seen earlier today. Signature stamp does not reflect patient encounter time.). - Miko Jaime MD Subjective Subjective N/V improved Objective Last 24 Hour Vital Signs Date Time Temp Pulse Resp B/P (MAP) Pulse Ox O2 Delivery O2 Flow Rate FiO2 06/05/18 11:48 98.2 61 18 134/98 (110) 99 98.2 06/05/18 09:00 Room Air 06/05/18 07:27 98.1 67 20 105/62 (76) 100 98.1 06/05/18 07:15 68 16 Room Air 21 06/05/18 05:08 98.1 06/05/18 04:16 98.1 73 18 104/74 (84) 100 98.1 06/05/18 04:09 98.1 06/05/18 03:10 98.1 06/05/18 02:11 98.1 06/05/18 00:37 98.1 91 19 136/63 (87) 100 98.1 06/04/18 22:18 76 146/97 (113) 06/04/18 21:55 Room Air 06/04/18 21:45 70 18 9 Room Air 21 06/04/18 21:33 68 18 98 Room Air 21 06/04/18 21:16 98.1 06/04/18 20:19 98.1 82 17 160/86 (110) 99 98.1 06/04/18 19:59 70 18 Room Air 21 Intake and Output 06/04/18 06/05/18 19:00 07:00 Intake Total 300 ml 450 ml Balance 300 ml 450 ml Intake IV Total 300 ml 450 ml # Voids 3 2 Laboratory Tests Test 06/05/18 06:10 White Blood Count 7.8 K/UL (4.8-10.8) Red Blood Count 4.13 M/UL (4.20-5.40) L Hemoglobin 13.0 G/DL (12.0-16.0) Hematocrit 37.3 % (37.0-47.0) Mean Corpuscular Volume 90 FL (80-99) Mean Corpuscular Hemoglobin 31.5 PG (27.0-31.0) H Mean Corpuscular Hemoglobin Concent 34.9 G/DL (32.0-36.0) Red Cell Distribution Width 10.4 % (11.6-14.8) L Platelet Count 164 K/UL (150-450) Mean Platelet Volume 8.1 FL (6.5-10.1) Neutrophils (%) (Auto) % (45.0-75.0) Lymphocytes (%) (Auto) % (20.0-45.0) Monocytes (%) (Auto) % (1.0-10.0) Eosinophils (%) (Auto) % (0.0-3.0) Basophils (%) (Auto) % (0.0-2.0) Differential Total Cells Counted 100 Neutrophils % (Manual) 63 % (45-75) Lymphocytes % (Manual) 28 % (20-45) Monocytes % (Manual) 6 % (1-10) Eosinophils % (Manual) 3 % (0-3) Basophils % (Manual) 0 % (0-2) Band Neutrophils 0 % (0-8) Platelet Estimate Adequate Platelet Morphology Normal Red Blood Cell Morphology Normal Sodium Level 136 MMOL/L (136-145) Potassium Level 3.2 MMOL/L (3.5-5.1) L Chloride Level 101 MMOL/L (98-107) Carbon Dioxide Level 25 MMOL/L (21-32) Anion Gap 11 mmol/L (5-15) Blood Urea Nitrogen 4 mg/dL (7-18) L Creatinine 0.5 MG/DL (0.55-1.30) L Estimat Glomerular Filtration Rate > 60 mL/min (>60) Glucose Level 99 MG/DL (74-106) Calcium Level 8.0 MG/DL (8.5-10.1) L Height (Feet): 5 Height (Inches): 1.00 Weight (Pounds): 129 General Appearance: WD/WN, no apparent distress, alert Cardiovascular: normal rate Respiratory/Chest: normal breath sounds, no respiratory distress Abdominal Exam: normal bowel sounds, non tender, soft Extremities: normal range of motion, non-tender Massiel Thompson NP Jun 05, 2018 13:19
[2018-06-05] MEDS ORDERED: Tubing IV Secondary IV ONE (15:52)
[2018-06-05] MEDS ORDERED: NS 275ml ONE (15:52)
[2018-06-05 15:55] VITALS: BP 124/95
[2018-06-05 20:00] VITALS: BP 128/90
--- NOTE | 2018-06-05 23:12 | General Surgery Progress Note ---
General Surgery-Progress Note Subjective Additional Comments late entry for patient seen earlier today. was pending radiological images and results still with pain. no n/v/f/c. states lower abdominal discomfort Objective Last 24 Hour Vital Signs Date Time Temp Pulse Resp B/P (MAP) Pulse Ox O2 Delivery O2 Flow Rate FiO2 06/05/18 21:00 Room Air 06/05/18 20:00 98.4 63 19 128/90 (103) 99 98.4 06/05/18 18:51 79 18 Room Air 06/05/18 15:55 97.5 80 20 124/95 (105) 100 97.5 06/05/18 11:48 98.2 61 18 134/98 (110) 99 98.2 06/05/18 09:00 Room Air 06/05/18 07:27 98.1 67 20 105/62 (76) 100 98.1 06/05/18 07:15 68 16 Room Air 21 06/05/18 05:08 98.1 06/05/18 04:16 98.1 73 18 104/74 (84) 100 98.1 06/05/18 04:09 98.1 06/05/18 03:10 98.1 06/05/18 02:11 98.1 06/05/18 00:37 98.1 91 19 136/63 (87) 100 98.1 I&O Intake and Output 06/04/18 06/05/18 19:00 07:00 Intake Total 300 ml 450 ml Balance 300 ml 450 ml IV Total 300 ml 450 ml # Voids 3 2 Drains: none Cardiovascular: RSR Respiratory: clear Abdomen: soft, flat, tenderness, present bowel sounds Extremities: no cyanosis Laboratory Tests Test 06/05/18 06:10 White Blood Count 7.8 K/UL (4.8-10.8) Red Blood Count 4.13 M/UL (4.20-5.40) L Hemoglobin 13.0 G/DL (12.0-16.0) Hematocrit 37.3 % (37.0-47.0) Mean Corpuscular Volume 90 FL (80-99) Mean Corpuscular Hemoglobin 31.5 PG (27.0-31.0) H Mean Corpuscular Hemoglobin Concent 34.9 G/DL (32.0-36.0) Red Cell Distribution Width 10.4 % (11.6-14.8) L Platelet Count 164 K/UL (150-450) Mean Platelet Volume 8.1 FL (6.5-10.1) Neutrophils (%) (Auto) % (45.0-75.0) Lymphocytes (%) (Auto) % (20.0-45.0) Monocytes (%) (Auto) % (1.0-10.0) Eosinophils (%) (Auto) % (0.0-3.0) Basophils (%) (Auto) % (0.0-2.0) Differential Total Cells Counted 100 Neutrophils % (Manual) 63 % (45-75) Lymphocytes % (Manual) 28 % (20-45) Monocytes % (Manual) 6 % (1-10) Eosinophils % (Manual) 3 % (0-3) Basophils % (Manual) 0 % (0-2) Band Neutrophils 0 % (0-8) Platelet Estimate Adequate Platelet Morphology Normal Red Blood Cell Morphology Normal Sodium Level 136 MMOL/L (136-145) Potassium Level 3.2 MMOL/L (3.5-5.1) L Chloride Level 101 MMOL/L (98-107) Carbon Dioxide Level 25 MMOL/L (21-32) Anion Gap 11 mmol/L (5-15) Blood Urea Nitrogen 4 mg/dL (7-18) L Creatinine 0.5 MG/DL (0.55-1.30) L Estimat Glomerular Filtration Rate > 60 mL/min (>60) Glucose Level 99 MG/DL (74-106) Calcium Level 8.0 MG/DL (8.5-10.1) L Plan Problems: (1) Abdominal pain Assessment & Plan: possible related to intussusception or can be incidental findings. symptoms improved exam benign labs okay. small bowel series without obstruction no acute surgical intervention indicated trail diet may consider repeat CT but will follow clinically for now. thank you Vince Randall Jun 05, 2018 23:12
[2018-06-06] VITALS: BP 118/83
[2018-06-06] MEDS: traMADol 50mg tab ORAL PRN ×2 (01:29→08:35)
[2018-06-06 04:00] VITALS: BP 116/69
[2018-06-06 06:39] LABS: BASOPHILS % (AUTO) 0.2 % (0.0-2.0); HEMATOCRIT 34.3 % (37.0-47.0); HEMOGLOBIN 11.7 G/DL (12.0-16.0); LYMPHOCYTES % (AUTO) 20.9 % (20.0-45.0); MEAN CORPUSCULAR VOLUME 91 FL (80-99); MONOCYTES % (AUTO) 4.4 % (1.0-10.0); NEUTROPHILS % (AUTO) 72.4 % (45.0-75.0); PLATELET COUNT 148 K/UL (150-450); RED BLOOD COUNT 3.77 M/UL (4.20-5.40); RED CELL DISTRIBUTION WIDTH 10.4 % (11.6-14.8); WHITE BLOOD COUNT 9.1 K/UL (4.8-10.8)
[2018-06-06 07:30] LABS: ALANINE AMINOTRANSFERASE 340 U/L (12-78); ALBUMIN/GLOBULIN RATIO 0.9 (1.0-2.7); ALKALINE PHOSPHATASE 53 U/L (46-116); ANION GAP 8 mmol/L (5-15); ASPARTATE AMINO TRANSFERASE 65 U/L (15-37); BILIRUBIN,TOTAL 0.6 MG/DL (0.2-1.0); BLOOD UREA NITROGEN 4 mg/dL (7-18); CALCIUM 8.1 MG/DL (8.5-10.1); CARBON DIOXIDE 25 MMOL/L (21-32); CHLORIDE 105 MMOL/L (98-107); CREATININE 0.6 MG/DL (0.55-1.30); POTASSIUM 3.6 MMOL/L (3.5-5.1); SODIUM 138 MMOL/L (136-145)
[2018-06-06] MEDS: Albuterol/Ipratropium 3ml neb HHN PRN (08:39)
[2018-06-06 08:41] VITALS: BP 141/102
[2018-06-06] MEDS: Docusate 100mg cap ORAL SCH ×3 (09:19→17:08)
--- NOTE | 2018-06-06 10:34 | General Surgery Progress Note ---
General Surgery-Progress Note Subjective Additional Comments doing well. abd cramping. no n/v/f/c. radiological images reviewed and no obstruction noted. Objective Last 24 Hour Vital Signs Date Time Temp Pulse Resp B/P (MAP) Pulse Ox O2 Delivery O2 Flow Rate FiO2 06/06/18 08:41 97.5 95 20 141/102 (115) 100 97.5 06/06/18 08:38 66 18 98 Room Air 21 06/06/18 08:34 74 18 Room Air 21 06/06/18 07:29 Room Air 06/06/18 04:00 97.7 74 19 116/69 (85) 99 97.7 06/06/18 00:00 97.5 63 20 118/83 (95) 100 97.5 06/05/18 21:00 Room Air 06/05/18 20:00 98.4 63 19 128/90 (103) 99 98.4 06/05/18 18:51 79 18 Room Air 06/05/18 15:55 97.5 80 20 124/95 (105) 100 97.5 06/05/18 11:48 98.2 61 18 134/98 (110) 99 98.2 I&O Intake and Output 06/05/18 06/06/18 19:00 07:00 Intake Total 1765 ml 1900 ml Balance 1765 ml 1900 ml Intake Oral 940 ml 1000 ml IV Total 825 ml 900 ml # Voids 4 5 Cardiovascular: RSR Respiratory: clear Abdomen: soft, flat, non-tender, present bowel sounds Extremities: no edema, no tenderness, no cyanosis Laboratory Tests Test 06/06/18 05:20 White Blood Count 9.1 K/UL (4.8-10.8) Red Blood Count 3.77 M/UL (4.20-5.40) L Hemoglobin 11.7 G/DL (12.0-16.0) L Hematocrit 34.3 % (37.0-47.0) L Mean Corpuscular Volume 91 FL (80-99) Mean Corpuscular Hemoglobin 31.0 PG (27.0-31.0) Mean Corpuscular Hemoglobin Concent 34.1 G/DL (32.0-36.0) Red Cell Distribution Width 10.4 % (11.6-14.8) L Platelet Count 148 K/UL (150-450) L Mean Platelet Volume 7.5 FL (6.5-10.1) Neutrophils (%) (Auto) 72.4 % (45.0-75.0) Lymphocytes (%) (Auto) 20.9 % (20.0-45.0) Monocytes (%) (Auto) 4.4 % (1.0-10.0) Eosinophils (%) (Auto) 2.0 % (0.0-3.0) Basophils (%) (Auto) 0.2 % (0.0-2.0) Sodium Level 138 MMOL/L (136-145) Potassium Level 3.6 MMOL/L (3.5-5.1) Chloride Level 105 MMOL/L (98-107) Carbon Dioxide Level 25 MMOL/L (21-32) Anion Gap 8 mmol/L (5-15) Blood Urea Nitrogen 4 mg/dL (7-18) L Creatinine 0.6 MG/DL (0.55-1.30) Estimat Glomerular Filtration Rate > 60 mL/min (>60) Glucose Level 91 MG/DL (74-106) Calcium Level 8.1 MG/DL (8.5-10.1) L Total Bilirubin 0.6 MG/DL (0.2-1.0) Aspartate Amino Transf (AST/SGOT) 65 U/L (15-37) H Alanine Aminotransferase (ALT/SGPT) 340 U/L (12-78) H Alkaline Phosphatase 53 U/L (46-116) Total Protein 6.2 G/DL (6.4-8.2) L Albumin 3.0 G/DL (3.4-5.0) L Globulin 3.2 g/dL Albumin/Globulin Ratio 0.9 (1.0-2.7) L Plan Problems: (1) Abdominal pain Assessment & Plan: possible related to intussusception or can be incidental findings. symptoms improved exam benign labs okay. small bowel series without obstruction intussusception likely transient. in young 28yo female with normal small bowel series do not recommend radiation dose of CT to ensure incidental intussusception tolerating oral diet no acute surgical intervention indicated soft diet good bowel regimen enema once BM can d/c thank you Vince Randall Jun 06, 2018 10:34
[2018-06-06] MEDS ORDERED: Fleet's Enema 133ml RECTAL SCH ×2 (10:45)
[2018-06-06] MEDS ORDERED: Fleet's Enema 133ml RECTAL PRN (11:00)
[2018-06-06 11:58] VITALS: BP 152/92
--- NOTE | 2018-06-06 12:08 | GI Progress Note ---
Assessment/Plan Problems: (1) Intussusception of small bowel ICD Codes: K56.1 - Intussusception SNOMED: 673954065 (2) Abdominal pain ICD Codes: R10.9 - Unspecified abdominal pain SNOMED: 14080286 (3) Intractable nausea and vomiting ICD Codes: R11.2 - Nausea with vomiting, unspecified SNOMED: 020270170 (4) Elevated liver enzymes ICD Codes: R74.8 - Abnormal levels of other serum enzymes SNOMED: 139082168 Status: stable Status Narrative Discussed with Dr. Jaime. Assessment/Plan Small bowel follow-through as above without evidence to suggest small bowel obstruction. transaminitis symptomatic treatment adv to regular diet pain mgmt zofran prn trend LFTs fu labs dc planning The patient was seen and examined at bedside and all new and available data was reviewed in the patients chart. I agree with the above findings, impression and plan. (Patient seen earlier today. Signature stamp does not reflect patient encounter time.). - Miko Jaime MD Subjective Subjective N/V improved feels constipated Objective Last 24 Hour Vital Signs Date Time Temp Pulse Resp B/P (MAP) Pulse Ox O2 Delivery O2 Flow Rate FiO2 06/06/18 11:58 97.0 91 20 152/92 (112) 100 97.0 06/06/18 08:41 97.5 95 20 141/102 (115) 100 97.5 06/06/18 08:38 66 18 98 Room Air 21 06/06/18 08:34 74 18 Room Air 21 06/06/18 07:29 Room Air 06/06/18 04:00 97.7 74 19 116/69 (85) 99 97.7 06/06/18 00:00 97.5 63 20 118/83 (95) 100 97.5 06/05/18 21:00 Room Air 06/05/18 20:00 98.4 63 19 128/90 (103) 99 98.4 06/05/18 18:51 79 18 Room Air 06/05/18 15:55 97.5 80 20 124/95 (105) 100 97.5 Intake and Output 06/05/18 06/06/18 19:00 07:00 Intake Total 1765 ml 1900 ml Balance 1765 ml 1900 ml Intake Oral 940 ml 1000 ml IV Total 825 ml 900 ml # Voids 4 5 Laboratory Tests Test 06/06/18 05:20 White Blood Count 9.1 K/UL (4.8-10.8) Red Blood Count 3.77 M/UL (4.20-5.40) L Hemoglobin 11.7 G/DL (12.0-16.0) L Hematocrit 34.3 % (37.0-47.0) L Mean Corpuscular Volume 91 FL (80-99) Mean Corpuscular Hemoglobin 31.0 PG (27.0-31.0) Mean Corpuscular Hemoglobin Concent 34.1 G/DL (32.0-36.0) Red Cell Distribution Width 10.4 % (11.6-14.8) L Platelet Count 148 K/UL (150-450) L Mean Platelet Volume 7.5 FL (6.5-10.1) Neutrophils (%) (Auto) 72.4 % (45.0-75.0) Lymphocytes (%) (Auto) 20.9 % (20.0-45.0) Monocytes (%) (Auto) 4.4 % (1.0-10.0) Eosinophils (%) (Auto) 2.0 % (0.0-3.0) Basophils (%) (Auto) 0.2 % (0.0-2.0) Sodium Level 138 MMOL/L (136-145) Potassium Level 3.6 MMOL/L (3.5-5.1) Chloride Level 105 MMOL/L (98-107) Carbon Dioxide Level 25 MMOL/L (21-32) Anion Gap 8 mmol/L (5-15) Blood Urea Nitrogen 4 mg/dL (7-18) L Creatinine 0.6 MG/DL (0.55-1.30) Estimat Glomerular Filtration Rate > 60 mL/min (>60) Glucose Level 91 MG/DL (74-106) Calcium Level 8.1 MG/DL (8.5-10.1) L Total Bilirubin 0.6 MG/DL (0.2-1.0) Aspartate Amino Transf (AST/SGOT) 65 U/L (15-37) H Alanine Aminotransferase (ALT/SGPT) 340 U/L (12-78) H Alkaline Phosphatase 53 U/L (46-116) Total Protein 6.2 G/DL (6.4-8.2) L Albumin 3.0 G/DL (3.4-5.0) L Globulin 3.2 g/dL Albumin/Globulin Ratio 0.9 (1.0-2.7) L Height (Feet): 5 Height (Inches): 1.00 Weight (Pounds): 129 General Appearance: WD/WN, no apparent distress, alert, thin Cardiovascular: normal rate Respiratory/Chest: normal breath sounds, no respiratory distress Abdominal Exam: normal bowel sounds, non tender, soft Extremities: normal range of motion, non-tender Massiel Thompson NP Jun 06, 2018 12:08
--- NOTE | 2018-06-06 13:15 | General Progress Note ---
Assessment/Plan Problem List: (1) Elevated liver enzymes ICD Codes: R74.8 - Abnormal levels of other serum enzymes SNOMED: 009598781 (2) Intractable nausea and vomiting ICD Codes: R11.2 - Nausea with vomiting, unspecified SNOMED: 385091667 (3) Hypokalemia ICD Codes: E87.6 - Hypokalemia SNOMED: 59343568 (4) Abdominal pain ICD Codes: R10.9 - Unspecified abdominal pain SNOMED: 02588977 (5) Intussusception of small bowel ICD Codes: K56.1 - Intussusception SNOMED: 626257284 Assessment/Plan will dc once cleared by gi dr and dr dumas and can tolerate po food intusseption treatment per recommenation of dr dumas check lft Subjective ROS Limited/Unobtainable: Yes Allergies: Coded Allergies: No Known Allergies (Unverified , 06/03/18) Objective Last 24 Hour Vital Signs Date Time Temp Pulse Resp B/P (MAP) Pulse Ox O2 Delivery O2 Flow Rate FiO2 06/06/18 11:58 97.0 91 20 152/92 (112) 100 97.0 06/06/18 08:41 97.5 95 20 141/102 (115) 100 97.5 06/06/18 08:38 66 18 98 Room Air 21 06/06/18 08:34 74 18 Room Air 21 06/06/18 07:29 Room Air 06/06/18 04:00 97.7 74 19 116/69 (85) 99 97.7 06/06/18 00:00 97.5 63 20 118/83 (95) 100 97.5 06/05/18 21:00 Room Air 06/05/18 20:00 98.4 63 19 128/90 (103) 99 98.4 06/05/18 18:51 79 18 Room Air 06/05/18 15:55 97.5 80 20 124/95 (105) 100 97.5 Intake and Output 06/05/18 06/06/18 19:00 07:00 Intake Total 1765 ml 1900 ml Balance 1765 ml 1900 ml Intake Oral 940 ml 1000 ml IV Total 825 ml 900 ml # Voids 4 5 Laboratory Tests 06/06/18 05:20: White Blood Count 9.1, Red Blood Count 3.77L, Hemoglobin 11.7L, Hematocrit 34.3L , Mean Corpuscular Volume 91, Mean Corpuscular Hemoglobin 31.0, Mean Corpuscular Hemoglobin Concent 34.1, Red Cell Distribution Width 10.4L, Platelet Count 148L, Mean Platelet Volume 7.5, Neutrophils (%) (Auto) 72.4, Lymphocytes (%) (Auto) 20.9, Monocytes (%) (Auto) 4.4, Eosinophils (%) (Auto) 2.0, Basophils (%) (Auto) 0.2, Sodium Level 138, Potassium Level 3.6, Chloride Level 105, Carbon Dioxide Level 25, Anion Gap 8, Blood Urea Nitrogen 4L, Creatinine 0.6, Estimat Glomerular Filtration Rate > 60, Glucose Level 91, Calcium Level 8.1L, Total Bilirubin 0.6, Aspartate Amino Transf (AST/SGOT) 65H, Alanine Aminotransferase (ALT/SGPT) 340H, Alkaline Phosphatase 53, Total Protein 6.2L, Albumin 3.0L, Globulin 3.2, Albumin/Globulin Ratio 0.9L Height (Feet): 5 Height (Inches): 1.00 Weight (Pounds): 129 Respiratory/Chest: lungs clear Abdomen: soft Reinier Harris MD Jun 06, 2018 13:15
--- NOTE | 2018-06-06 14:31 | Diagnostic Imaging Report ---
. Indication: Abdominal pain, recent small bowel follow-through Technique: Supine view of the abdomen Comparison: Small bowel follow-through of 06/04/2018 and 06/05/2018 Findings: Interim passage of all of the ingested contrast into the colon. Prominent gas-filled colon loops are seen in the left upper quadrant. No gaseous distention of small bowel. Impression: Essentially unremarkable, with passage of the entirety of contrast into the colon. No evidence of small bowel obstruction
[2018-06-06 16:20] VITALS: BP 111/62
[2018-06-06 20:00] VITALS: BP 148/86
[2018-06-07] VITALS: BP 124/83
[2018-06-07 04:00] VITALS: BP 120/80
[2018-06-07 08:15] VITALS: BP 130/93
[2018-06-07] MEDS: Docusate 100mg cap ORAL SCH ×2 (08:37→13:20)
--- NOTE | 2018-06-07 10:37 | General Progress Note ---
Assessment/Plan Problem List: (1) Abdominal pain ICD Codes: R10.9 - Unspecified abdominal pain SNOMED: 48821385 (2) Hypokalemia ICD Codes: E87.6 - Hypokalemia SNOMED: 06466823 Status: stable, progressing Assessment/Plan cbc bmp am dc if clear Subjective Constitutional: Reports: weakness Allergies: Coded Allergies: No Known Allergies (Unverified , 06/03/18) All Systems: reviewed and negative except above Subjective calm in bed Objective Last 24 Hour Vital Signs Date Time Temp Pulse Resp B/P (MAP) Pulse Ox O2 Delivery O2 Flow Rate FiO2 06/07/18 08:57 Room Air 06/07/18 08:15 98.2 90 18 130/93 (105) 100 98.2 06/07/18 04:00 98.2 83 17 120/80 (93) 98 98.2 06/07/18 00:00 98.2 84 18 124/83 (97) 99 98.2 06/06/18 21:00 Room Air 06/06/18 20:00 98.2 90 20 148/86 (106) 99 98.2 06/06/18 19:41 70 18 Room Air 21 06/06/18 16:20 97.2 66 20 111/62 (78) 100 97.2 06/06/18 11:58 97.0 91 20 152/92 (112) 100 97.0 Intake and Output 06/06/18 06/07/18 19:00 07:00 Intake Total 1250 ml 1200 ml Output Total 1 ml Balance 1249 ml 1200 ml Intake Oral 650 ml 300 ml IV Total 600 ml 900 ml Output Emesis 1 ml # Voids 3 3 # Bowel Movements 1 Height (Feet): 5 Height (Inches): 1.00 Weight (Pounds): 129 General Appearance: alert EENT: normal ENT inspection Neck: normal alignment Cardiovascular: normal peripheral pulses, normal rate, regular rhythm Respiratory/Chest: chest wall non-tender, lungs clear, normal breath sounds Abdomen: normal bowel sounds, non tender, soft Extremities: normal inspection Edema: no edema noted Arm (L), no edema noted Arm (R), no edema noted Leg (L), no edema noted Leg (R), no edema noted Pedal (L), no edema noted Pedal (R), no edema noted Generalized Neurologic: responsive, motor weakness Skin: normal pigmentation, warm/dry Fletcher Dimas DO Jun 07, 2018 10:37
[2018-06-07 11:35] VITALS: BP 109/77
--- NOTE | 2018-06-07 13:31 | General Surgery Progress Note ---
General Surgery-Progress Note Subjective Symptoms: improved, pain absent, tolerating diet, passing flatus, BM Additional Comments doing well. pain resolved. no n/v/f/c. had BM Objective Last 24 Hour Vital Signs Date Time Temp Pulse Resp B/P (MAP) Pulse Ox O2 Delivery O2 Flow Rate FiO2 06/07/18 11:35 97.0 66 18 109/77 (88) 95 97.0 06/07/18 10:55 66 20 Room Air 21 06/07/18 08:57 Room Air 06/07/18 08:15 98.2 90 18 130/93 (105) 100 98.2 06/07/18 04:00 98.2 83 17 120/80 (93) 98 98.2 06/07/18 00:00 98.2 84 18 124/83 (97) 99 98.2 06/06/18 21:00 Room Air 06/06/18 20:00 98.2 90 20 148/86 (106) 99 98.2 06/06/18 19:41 70 18 Room Air 21 06/06/18 16:20 97.2 66 20 111/62 (78) 100 97.2 I&O Intake and Output 06/06/18 06/07/18 19:00 07:00 Intake Total 1250 ml 1200 ml Output Total 1 ml Balance 1249 ml 1200 ml Intake Oral 650 ml 300 ml IV Total 600 ml 900 ml Output Emesis 1 ml # Voids 3 3 # Bowel Movements 1 Drains: none Cardiovascular: RSR Respiratory: clear Abdomen: soft, flat, non-tender, present bowel sounds Extremities: no cyanosis Plan Problems: (1) Abdominal pain Assessment & Plan: possible related to intussusception or can be incidental findings. symptoms improved exam benign labs okay. small bowel series without obstruction intussusception likely transient. in young 28yo female with normal small bowel series do not recommend radiation dose of CT to ensure incidental intussusception tolerating oral diet had BM and now pain resolved constipation vs IBS? no acute surgical intervention indicated soft diet good bowel regimen d/c home outpatient GI follow up thank you Vince Randall Jun 07, 2018 13:31
[2018-06-07] MEDS ORDERED: DOCUSATE SODIU100 M2 ORAL (13:47)
[2018-06-07] MEDS ORDERED: IBUPROFEN200 M2 ORAL (13:48)
[2018-06-07] MEDS ORDERED: GABAPENTIN300 MG ORAL (13:49)
[2018-06-07] MEDS ORDERED: TRAMADOL HCL50 MG ORAL (13:50)
[2018-06-07] MEDS ORDERED: ALBUTEROL2.5 MG/3 M INH (13:51)
[2018-06-07] MEDS ORDERED: ZOFRAN4 M1 ORAL (13:51)
[2018-06-07] MEDS ORDERED: BENADRYL25 MG ORAL (13:51)
[2018-06-07 16:02] VITALS: BP 122/86
--- NOTE | 2018-06-09 09:36 | Discharge Summary ---
Discharge Summary Discharge Summary _ DATE OF ADMISSION: 06/03/2018 DATE OF DISCHARGE: 06/07/2018 REASON FOR ADMISSION: 28 years old female with past medical history of cholecystectomy, presented to emergency department with abdominal pain and vomiting for 5 days. Abdominal pain started gradually, localized to all abdomen, nonradiating, sharp and intermittent. Pain described as 5 out of 10 on a scale 1-10 She reported nausea, multiple nonbloody and nonbilious vomiting episodes, no diarrhea. No flatus in 2 days. No bowel movement in 1 week. She denied fever and chills. Vital signs revealed tachycardia 116, no fever. Laboratory workup revealed leukocytosis with WBC 12.2. Stable hemoglobin and hematocrit. K-2.6, otherwise stable electrolytes and renal parameters. AST 240, ALT 533. Lipase stable. Urinalysis revealed + 2 protein ,+3 ketones, no evidence of UTI. Urine test negative. CT of abdomen and pelvis revealed surgically absent gallbaldder. Small focal intussusception left lower quadrant, probably involving proximal ileum, does not appear to obstructive, likely transient. No acute process otherwise Patient admitted with diagnoses of abdominal pain, elevated liver enzymes, hypokalemia, intractable nausea and vomiting. CONSULTANTS: GI specialist Dr. Jaime surgery Dr. Randall pain specialist Dr. Coronel [facility] COURSE: Patient admitted to the floor. Patient was on IV fluids and kept nothing by mouth. Potassium was replaced. Surgeon seen and evaluated patient. Abdominal pain was possibly related to intussusception or can be incidental finding. Small bowel series revealed no evidence to suggest small bowel obstruction. Per surgeon no acute surgical intervention indicated at this time. Abdominal exam was benign , however patient still experienced pain. Pain management provided as per pain specialist recommendations. Bowel regimen implemented. Patient slowly started on trial of diet. Diet slowly advanced as tolerated, antiemetics provided as needed. GI closely followed . According to the surgeon, intussusception likely transient in young 28 years old female with normal small bowel series. Abdominal pain was probably due to constipation, possible IBS. Patient was able to tolerate diet. Patient had bowel movement. Pain resolved. GI specialist closely follow. LFT were trending down. Hepatitis panel was negative. Electrolytes were closely monitored and replaced as needed. GI prophylaxis provided. Patient was stable for discharge home . Follow-up with GI as outpatient. FINAL DIAGNOSES: Abdominal pain Intussusception of small bowel , transient ( with normal small bowel series) Constipation Possible IBS Transaminitis, improving Hypokalemia,- resolved DISCHARGE MEDICATIONS: See Medication Reconciliation list. DISCHARGE INSTRUCTIONS: Patient was discharged home . Follow-up with a GI specialist as outpatient I have been assigned to dictate discharge summary for this account. I was not involved in the patient's management. Christy Mccabe NP Jun 09, 2018 09:36
== END 2018-06-07 17:27 | disposition home or self-care (01) | DRG 392 ==
LOC: EMR 17:46 → EDBEDREQ 20:58 → 4W 21:10
DX: R10.9 Unspecified abdominal pain (principal); K56.1 Intussusception; K59.00 Constipation, unspecified; K58.9 Irritable bowel syndrome, unspecified; R74.0 Nonspecific elevation of levels of transaminase and lactic acid dehydrogenase [LDH]; E87.6 Hypokalemia; R79.89 Other specified abnormal findings of blood chemistry
CPT/HCPCS: 36415; 74018; 74177; 74250; 80048; 80053; 80061; 81003; 81025; 82248; 82550; 82977; 83690; 83735; 84100; 84443; 84550; 84702; 85007; 85025; 86140; 86705; 86709; 86803; 87340; 94640; 94664; 99285; J2405; J7620; J8499